=== PATIENT | female | born 1980 | race Caucasian/White ===

== ENCOUNTER 2016-09-16 19:48 | Day surgery (SDCO) | payer OTHER ==
[2016-09-16 20:14] LABS: BASOPHIL 0.5 % (0-2); EOSINOPHIL 0.5 % (0-5); HCT 44.2 % (37.0-47.0); HGB 15.6 g/dl (12.5-16.0); LYMPHOCYTE 17.4 % (15-48); MCH 29.8 pg (25.0-31.0); MCHC 35.3 g/dL (32.0-36.0); MCV 84.4 fL (78.0-100.0); MONOCYTE 7.5 % (0-12); MPV 9.9 fL (6.0-9.5); NEUTROPHIL 74.1 % (41-80); PLT 232 K/uL (150-400); RBC 5.24 M/uL (4.20-5.40); RDW 12.4 % (11.5-14.0)
[2016-09-16 20:24] LABS: INR 1.01 (0.9-1.2); PROTHROMBIN TIME 12.9 SECONDS (11.7-14.0); PTT 30.3 SECONDS (23.2-31.4)
[2016-09-16 20:31] LABS: ALBUMIN 4.3 g/dL (3.5-5.0); BILIRUBIN - TOTAL 0.4 mg/dL (0.1-1.0); CREATININE 0.6 mg/dL (0.5-1.0); GLOBULIN (CALCULATION) 3.1 g/dL (2.2-4.2); MAGNESIUM 2.08 mg/dL (1.40-2.10); POTASSIUM 3.9 mmol/L (3.5-5.1); TOTAL PROTEIN 7.4 g/dL (6.4-8.3)
[2016-09-16 20:33] LABS: MYOGLOBIN 21 ng/mL (26-65); PRO-BNP 35 pg/mL (0-125); TROPONIN T < 0.010 ng/mL
[2016-09-16 22:46] LABS: BILIRUBIN NEGATIVE (NEGATIVE); BLOOD NEGATIVE Ery/uL (NEGATIVE); CLARITY HAZY (CLEAR); COLOR YELLOW (YELLOW); GLUCOSE (U) NORMAL (NORMAL); KETONE (U) NEGATIVE (NEGATIVE); LEUKOCYTES NEGATIVE Leu/uL (NEGATIVE); NITRITE NEGATIVE (NEGATIVE); PROTEIN NEGATIVE (NEGATIVE); UROBILINOGEN 0.2 mg/dL (0.2-1.0)
[2016-09-17 06:03] LABS: CREATININE 0.6 mg/dL (0.5-1.0); POTASSIUM 4.4 mmol/L (3.5-5.1); TROPONIN T < 0.010 ng/mL
[2016-09-17 10:17] LABS: FT4 (FREE T4) 1.01 ng/dL (0.93-1.70); TSH (THYROID STIM HORMONE) 0.753 uIU/mL (0.270-4.200)
[2016-09-17 11:47] LABS: TROPONIN T < 0.010 ng/mL
== END 2016-09-18 13:40 | disposition other institution (70) ==
LOC: FER 19:48 → FTCU 09-17 01:00
PROVIDERS: Emergency Medicine Emergency Medical Services; ADMIT Internal Medicine
DX: R07.2 Precordial pain (principal); F31.9 Bipolar disorder, unspecified; F41.9 Anxiety disorder, unspecified; M54.9 Dorsalgia, unspecified; Z98.51 Tubal ligation status; Z90.89 Acquired absence of other organs; Z98.890 Other specified postprocedural states; Z79.899 Other long term (current) drug therapy
CPT/HCPCS: 36415; 71010; 71275; 80048; 80053; 80061; 81003; 82550; 82553; 83690; 83735; 83874; 83880; 84439; 84443; 84484; 84703; 85025; 85379; 85610; 85730; 93005; C9113; G0378; J1885; J2060; J2270; J2930; Q9967

== ENCOUNTER 2016-10-20 17:20 | Emergency (ER) | payer OTHER | END 2016-10-20 19:05 | disposition home or self-care (01) | LOC: FER 17:20 | DX: M75.81 Other shoulder lesions, right shoulder (principal); F32.9 Major depressive disorder, single episode, unspecified | CPT/HCPCS: 73030; J1100; J1885 ==